=== PATIENT | female | born 1960 | race Caucasian/White ===

== ENCOUNTER 2018-04-17 16:46 | Emergency (ER) | payer OTHER ==
[~2018-04-17] VITALS: Ht 157.5 cm; Wt 72.6 kg
[2018-04-17 16:46] VITALS: BP 165/90
[2018-04-17] MEDS ORDERED: IBUPROFEN 600 MG TABLET PO ONE ×2 (17:51→18:00)
== END 2018-04-17 19:06 | disposition home or self-care (01) ==
LOC: ER 16:46
DX: M79.605 Pain in left leg (principal); M79.602 Pain in left arm; M79.89 Other specified soft tissue disorders; I10 Essential (primary) hypertension; V49.59XA Passenger injured in collision with other motor vehicles in traffic accident, initial encounter; Y93.89 Activity, other specified; Y92.413 State road as the place of occurrence of the external cause; Y99.8 Other external cause status
CPT/HCPCS: 71045; 72040; 73590; 73610; 73630; 99284; A4606; Z7610

== ENCOUNTER 2022-06-15 22:00 | Emergency (ER) | payer MEDICAID, OTHER ==
[~2022-06-15] VITALS: Ht 152.4 cm; Wt 77.1 kg
--- NOTE | 2022-06-15 22:20 | NUR ---
TO ER BED 13. BIBDAUGHTER C/O LEFT EYE PAIN X3DAYS. PT ALERT AND ORIENTED. RR EVEN AND NON LABORED. PT DENIES ANY TRAUMA. CONNECTED TO MONITOR, VSS. AWAITING MD GOMEZ
[2022-06-15 22:50] LABS: BASOPHILS # (AUTO) 0.1 K/uL (0.0-0.2); EOSINOPHILS % (AUTO) 5.9 % (0.0-6.0); HEMATOCRIT 38 % (33-45); HEMOGLOBIN 12.8 g/dL (11.5-14.8); LYMPHOCYTES # (AUTO) 4.8 K/uL (0.8-4.8); LYMPHOCYTES % (AUTO) 49.8 % (20.0-44.0); MEAN CORPUSCULAR HGB CONC 34 g/dl (31.0-36.0); MEAN CORPUSCULAR VOLUME 88 fL (82-100); MONOCYTES # (AUTO) 0.6 K/uL (0.1-1.30); MONOCYTES % (AUTO) 6.4 % (2.0-12.0); NEUTROPHILS # (AUTO) 3.6 K/uL (1.8-8.9); NEUTROPHILS % (AUTO) 36.9 % (43.0-81.0); PLATELET COUNT (AUTO) 279 K/uL (150-450); RED BLOOD CELL COUNT(AUTO) 4.31 MIL/uL (4.0-5.2); WHITE BLOOD COUNT (AUTO) 9.7 K/uL (4.3-11.0)
[2022-06-15] MEDS ORDERED: IOHEXOL-300 100 ML VIAL IV ONE (23:00)
[2022-06-15 23:05] LABS: CREATININE 0.8 mg/dL (0.6-1.3); POTASSIUM 3.5 mmol/L (3.5-5.1)
--- NOTE | 2022-06-15 23:05 | NUR ---
IV LINE ESTABLISHED, [id number]
--- NOTE | 2022-06-16 02:16 | NUR ---
IV removed. Catheter intact and site benign. Pressure and 4x4 applied to site. No bleeding noted.
--- NOTE | 2022-06-16 02:17 | NUR ---
Patient does not wish to proceed with medical care recommended by Dr. Sin. Patient given information related to possible complications, up to and including , which could occur as a result of leaving the hospital at this time. Patient verbalizes understanding of risks involved due to leaving against medical advice. Patient has signed AMA form.
[2022-06-16 03:06] VITALS: BP 149/70
== END 2022-06-16 03:07 | disposition left against medical advice (07) ==
LOC: ER 22:07
DX: H57.12 Ocular pain, left eye (principal)
CPT/HCPCS: 99285; 70481; 85025; 80048; 36415; Q9967